=== PATIENT | female | born 1990 | race Caucasian/White ===

== ENCOUNTER 2018-08-10 08:24 | Inpatient (IN) | payer OTHER, MEDICAID ==
[~2018-08-10] VITALS: Ht 167.6 cm; Wt 72.6 kg
[~2018-08-10 08:24] MED LIST: ACETAMINOPHEN-1 EAC1 PO; AUGMENTIN 875875 MG PO; CVS PRENATAL M1 EACH PO; PREDNISONE 20 M20 M1 PO; TOBRAMYCIN SULFA5 ML OPHTHALMIC
[2018-08-10 08:37] VITALS: BP 112/73
[2018-08-10] MEDS ORDERED: FLEXERIL PO (08:41)
[2018-08-10] MEDS ORDERED: NAPROSYN500 MG PO (08:41)
[2018-08-10] MEDS ORDERED: CLEOCIN HCL150 MG PO (08:41)
[2018-08-10 09:14] LABS: HEMATOCRIT 39.7 % (37.0-47.0); MCH 29.4 pg (26.0-34.0); MCHC 32.8 g/dL (28.0-37.0); MCV 89.6 fL (80.0-100.0); MPV 9.3 fl. (7.2-11.1); NUCLEATED RBCS 0 /100WBC; PLATELET COUNT* 234 thou/uL (150-400); RBC 4.43 mil/uL (4.20-5.00); RDW-CV 12.9 % (10.5-14.5); WBC 12.8 thou/uL (4.0-11.0)
[2018-08-10 09:25] LABS: URINE BILIRUBIN NEGATIVE (Negative); URINE BLOOD NEGATIVE (Negative); URINE CLARITY CLEAR; URINE COLOR DARK YELLOW; URINE GLUCOSE-RANDOM NEGATIVE (Negative); URINE KETONES 1+ (Negative); URINE LEUKOCYTES-REFLEX NEGATIVE (Negative); URINE NITRITE-REFLEX NEGATIVE (Negative); URINE PROTEIN 1+ (Negative); URINE SPECIFIC GRAVITY 1.015 (1.005-1.030); URINE UROBILINOGEN 0.2 E.U./dl (0.2-1.0)
[2018-08-10 09:26] LABS: APTT 40.4 Seconds (25.0-31.3); PROTIME 10.4 Seconds (9.20-11.50)
[2018-08-10 09:32] LABS: CALCIUM 8.4 mg/dL (8.5-10.1); CREATININE 0.8 mg/dL (0.6-1.3); POTASSIUM 3.4 mmol/L (3.5-5.1)
[2018-08-10 09:35] LABS: MUCUS >6 Heavy strn/LPF (None Seen); SQUAMOUS >10 Many /LPF (0-3)
[2018-08-10 09:36] LABS: BACTERIA-REFLEX >30 Many /HPF (None Seen); URINE RBC 3-10 Few /HPF (0-2)
[2018-08-10 09:37] LABS: ALBUMIN 3.7 g/dL (3.4-5.0); TOTAL BILIRUBIN 0.8 mg/dL (<0.1-1.0); TOTAL PROTEIN 7.4 g/dL (6.4-8.2)
[2018-08-10 09:37] LABS: CASTS None Seen /LPF (None Seen); CRYSTALS None Seen /LPF (None Seen); URINE WBC-REFLEX 0-5 Rare /HPF (0-5)
[2018-08-10 09:47] LABS: ABSOLUTE EOSINOPHILS 0.1 thou/uL (0.0-0.7); ABSOLUTE LYMPHOCYTES 1.5 thou/uL (0.8-5.3); ABSOLUTE MONOCYTES 1.3 thou/uL (0.0-1.2); ABSOLUTE NEUTROPHILS 9.9 thou/uL (1.6-8.1); ATYPICAL LYMPHS 2 %; PLATELET ESTIMATE ADEQUATE
[2018-08-10 12:25] VITALS: BP 116/71
[2018-08-10 13:03] VITALS: BP 105/64
[2018-08-10 15:59] VITALS: BP 124/73
--- NOTE | 2018-08-10 20:28 | NUR ---
PATIENT ARRIVED ON UNIT FROM ER AT 1600. COMPLETED ADMISSION ASSESSMENT AND HISTORY. IV CLEAN, FLUIDS INFUSING. PAIN CONTROLLED WELL WITH TORDOL. TOLERATED DIET, NO NAUSEA AND VOMITING. CREAM PLACED ON NECK. ALERT AND ORIENTED X'S 4. VITAL SIGNS AND SPO2 STABLE. COMPLETED HOURLY ROUNDING. CALL LIGHT WITHIN REACH. WILL CONTINUE TO MONITOR.
[2018-08-10 20:45] VITALS: BP 105/62
[2018-08-11 04:28] LABS: ABSOLUTE EOSINOPHILS 0.1 thou/uL (0.0-0.7); ABSOLUTE LYMPHOCYTES 1.3 thou/uL (0.8-5.3); ABSOLUTE MONOCYTES 1.1 thou/uL (0.0-1.2); ABSOLUTE NEUTROPHILS 5.7 thou/uL (1.6-8.1); BASOPHILS 0.4 %; EOSINOPHILS 1.7 %; HEMATOCRIT 33.3 % (37.0-47.0); HEMOGLOBIN 11.2 gm/dL (12.0-15.0); LYMPHOCYTES 16.1 %; MCH 30.2 pg (26.0-34.0); MCHC 33.7 g/dL (28.0-37.0); MCV 89.6 fL (80.0-100.0); MONOCYTES 13.1 %; MPV 8.8 fl. (7.2-11.1); NUCLEATED RBCS 0 /100WBC; PLATELET COUNT* 202 thou/uL (150-400); POLYS 68.7 %; RBC 3.71 mil/uL (4.20-5.00); RDW-CV 12.9 % (10.5-14.5); WBC 8.3 thou/uL (4.0-11.0)
[2018-08-11 04:43] LABS: CALCIUM 7.6 mg/dL (8.5-10.1); CREATININE 0.7 mg/dL (0.6-1.3); MAGNESIUM 2.1 mg/dL (1.8-2.4); POTASSIUM 3.3 mmol/L (3.5-5.1)
--- NOTE | 2018-08-11 05:36 | NUR ---
PATIENT REMAINS ALERT AND ORIENTED X4 THROUGHOUT SHIFT. VITAL SIGNS STABLE ON ROOM AIR. TRANSFERS AD OLIVIER TO THE RESTOOM. IV PATENT IN THE RIGHT AC SALINE LOCKED PER ORDERS. TOLERATING DIET. PAIN MANAGED WITH PO MEDICATION. REPOSITIONING SELF IN BED. HOURLY ROUNDING COMPLETE. CALL LIGHT WITHIN REACH. NURSING WILL CONTINUE TO MONITOR.
[2018-08-11 07:45] VITALS: BP 112/70
--- NOTE | 2018-08-11 13:11 | CON ---
[address] [address] CONSULTATION Name: JANESSA GRIFFITH Room: [address] [place] .R.#: [id number] Admission: 08/10/18 Attend Phys: Paul Corcoran MD Discharge: Date of : 88 Report #: [id number] THIS REPORT FOR: //name// CC: Paul Corcoran [facility] physician/PCP DATE OF SERVICE: 08/10/2018 REASON FOR CONSULTATION: I was asked to evaluate concerning left neck soft tissue infection. HISTORY OF PRESENT ILLNESS: The patient was a 27-year-old otherwise healthy white female with a 4-day history of increasing left neck pain and swelling. She has underlying history of eczema that involves her posterior scalp as well as her hands on the palmar surface. She has had this for several years. She also has a history of recurring ear infections, mostly on the left side. She had issues when she was a child with myringotomy tubes placed, but even as an adult, when she gets upper respiratory tract infection, it seems to settle in her left ear. She had some congestion last week, but that has cleared. Now with pain in her left neck, now associated with erythema and low-grade fever. She has associated headache with this. No change in her hearing. No vertigo. Seen in the [facility] initially and felt that she had a viral issue. She returned 2 days ago and was placed on clindamycin. With no improvement, she presents this morning for further evaluation. In the Emergency Room, she was afebrile and hemodynamically stable. There have been no mental status changes. REVIEW OF SYSTEMS: Denies any pharyngitis symptoms. No rhinorrhea. No visual changes. No hearing changes. Denies any cough or sputum production. She has had no pleuritic chest pain. No nausea, vomiting or diarrhea. No dysuria or frequency. No other rashes. No arthritis symptoms. REVIEW OF SYSTEMS: A 10-point review of systems negative other than what is described above. PAST MEDICAL HISTORY: Sinusitis, oophorectomy, tonsillectomy, myringotomy tubes. ALLERGIES: CEFACLOR, although tolerates penicillins. MEDICATIONS: As noted on her JAN, now on vancomycin. Previously was on Flexeril, Naprosyn, and clindamycin. FAMILY HISTORY: Noncontributory. SOCIAL HISTORY: Smoker of cigarettes. No significant alcohol intake. No HIV risk factors. Works in a daycare. Has a 5-year-old child, [place] [address] CONSULTATION Name: JANESSA GRIFFITH Room: [address]#: [id number] Admission: 08/10/18 Attend Phys: Paul Corcoran MD Discharge: Date of : 88 Report #: [id number] parttime. PHYSICAL EXAMINATION: GENERAL: Afebrile and hemodynamically stable. Alert and cooperative. Mental status was normal. She had significant amount of pain when trying to move her head. She guarded her neck on the left side. SKIN: With erythema and induration involving the left neck laterally. She had tender adenopathy, posterior auricular and in the posterior cervical chain. HEENT: Erythema extended from the nape of her neck down to her base of her sternocleidomastoid. Eyes: Unremarkable with no conjunctivitis or scleral icterus. Mouth: Unremarkable with no mucositis. No pharyngitis evident. There is no posterior oropharyngeal injection or drainage. No thyromegaly or mass identified. LUNGS: Clear with no adventitial sounds. HEART: Regular, without murmur, gallop or rub. ABDOMEN: Soft, nontender, no hepatosplenomegaly or mass. EXTREMITIES: Unremarkable with no peripheral edema or cyanosis. She had no other peripheral adenopathy identified. She did have on skin examination in addition to what is described in her head and neck exam, she also had eczema involving both palms. NEUROLOGIC: Normal including normal cranial nerves, lower extremity strength and sensation. LABORATORY STUDIES: Hemoglobin 13, platelet count 234,000, white count 12.8, 76% segs, 1% band. Sodium 138, potassium 3.4, bicarbonate of 26, creatinine 0.8. Liver function test normal. Urinalysis, no wbc's, many bacteria and blood cultures are pending. CT scan of the neck was viewed and agreed with impression reported. She has evidence of cellulitis with some swelling along the left sternocleidomastoid. Small rim of fluid tracking down posteriorly as well. IMPRESSION: A 27-year-old with cellulitis, soft tissue infection of the left neck. I am suspecting the initial source was related to her eczema. No evidence of mastoiditis or dental infection. No evidence of pneumonia. Her group A strep antigen was negative. RECOMMENDATION: We will continue with IV antibiotic therapy. May need a course of corticosteroids, get the inflammation to diminish here. We will screen for MRSA. Apply heat to the left neck. Check ASO titer. Follow up CBC in the a.m. <ELECTRONICALLY SIGNED> By: Amaury Bond MD 08/11/18 1311 [id number] Bond MD /nt
[2018-08-11 16:00] VITALS: BP 118/54
--- NOTE | 2018-08-11 16:48 | NUR ---
PATIENT GIVEN PRN VICODIN FOR LEFT SIDED NECK PAIN THIS SHIFT, ADEQUATE PAIN RELIEF NOTED. UP AD OLIVIER. IV ABX SCHED AND GIVEN ORDERED. PRN HS SLEEP AIDE ORDERED FOR PATIENT PER REQUEST. POTASSIUM REPLACED THIS SHIFT FOR VALUE OF 3.3 PER PROTOCOL, REDRAW THIS EVENING. WARM MOIST PACK FOR LEFT SIDE OF NECK.
[2018-08-11 20:45] VITALS: BP 109/70
[2018-08-12 04:33] LABS: ABSOLUTE LYMPHOCYTES 0.9 thou/uL (0.8-5.3); ABSOLUTE MONOCYTES 0.5 thou/uL (0.0-1.2); ABSOLUTE NEUTROPHILS 9.4 thou/uL (1.6-8.1); BASOPHILS 0.1 %; HEMOGLOBIN 11.3 gm/dL (12.0-15.0); LYMPHOCYTES 8.4 %; MCH 30.1 pg (26.0-34.0); MCHC 33.3 g/dL (28.0-37.0); MCV 90.4 fL (80.0-100.0); MONOCYTES 4.7 %; MPV 9.1 fl. (7.2-11.1); NUCLEATED RBCS 0 /100WBC; PLATELET COUNT* 264 thou/uL (150-400); POLYS 86.8 %; RBC 3.77 mil/uL (4.20-5.00); RDW-CV 13.1 % (10.5-14.5); WBC 10.8 thou/uL (4.0-11.0)
[2018-08-12 04:53] LABS: ALBUMIN 2.7 g/dL (3.4-5.0); CALCIUM 8.4 mg/dL (8.5-10.1); CREATININE 0.6 mg/dL (0.6-1.3); TOTAL BILIRUBIN 0.3 mg/dL (<0.1-1.0); TOTAL PROTEIN 6.4 g/dL (6.4-8.2)
[2018-08-12 08:03] VITALS: BP 121/80
--- NOTE | 2018-08-12 08:34 | NUR ---
PATIENT HAS RESTED WELL THROUGHOUT THE NIGHT. PAIN MEDICATION GIVEN FOR C/O HEADACHE. MEDICATION CHARTED. ASSESSMENT CHARTED. NEW IV IN LEFT FOREARM. IV ABT GIVEN ORDERED. NO ADVERSE SIDE EFFECTS NOTED. HOURLY ROUNDS MADE. WILL CONTINUE WITH PLAN OF CARE AND NURSING TO MONITOR.
--- NOTE | 2018-08-12 09:15 | NUR ---
ASSUMED CARE THIS AM, A/O, NO DISTRESS NOTED, VSS, SEE ASSESSMENT FOR DETAILS. REDNESS CLEARING FROM LEFT SIDE OF NECK, COMPLIANT WITH CARE, CARE PLAN REVIEWED WITH PATIENT, DENIES QUESTIONS AT THIS TIME, CONT POC.
--- NOTE | 2018-08-12 15:59 | NUR ---
PT.UP WALKING AROUND ROOM AND ON THE PHONE. SHE DID NOT ATTEMPT TO GET OFF THE PHONE TO TALK WITH CM. INTRODUCED MYSELF AND YOAV OF PEBBLES. SHE SAID SHE WAS FINE.WORKS OUTSIDE THE HOME. FAMILY WAS SUPPORTIVE. DID NOT NEED ANY HELP. HOPES TO GO HOME TOMORROW.
[2018-08-12 16:34] VITALS: BP 117/79
[2018-08-12 20:15] VITALS: BP 116/68
--- NOTE | 2018-08-13 06:10 | NUR ---
PATIENT REMAINS ALERT AND ORIENTED X4 THROUGHOUT SHIFT. VITAL SIGNS STABLE ON ROOM AIR. IV PATENT IN THE RIGHT FOREARM SALINE LOCKED. PAIN MANAGED WITH PO AND IV MEDICATION. DENIES NAUSEA. TOLERATING DIET. REPOSITIONING SELF IN BED HOURLY ROUNDING COMPLETE. CALL LIGHT WITHIN REACH. NURSING WILL CONTINUE TO MONITOR.
[2018-08-13 08:50] VITALS: BP 117/71
[2018-08-13] MEDS ORDERED: TRIAMCINOLONE A80 G2 TOP (12:07)
[2018-08-13 12:12] VITALS: BP 117/71
[2018-08-13] MEDS ORDERED: NORCO 5-325 TA1 EACH PO (12:12)
[2018-08-13 12:54] VITALS: BP 117/71
[2018-08-13] MEDS ORDERED: AUGMENTIN 875-1 EACH PO (12:54)
--- NOTE | 2018-08-13 13:12 | NUR ---
PT GIVEN DISCHARGE INFORMATION AT THIS TIME. IV REMOVED. PRESCRIPTIONS LEFT WITH PT. PT DENIES ANY FURTHER QUESTIONS AT THIS TIME. PT LEFT WITH NURSING STAFF TO HOME CARE.
[2018-08-13 13:31] VITALS: BP 117/71
--- NOTE | 2018-08-13 13:35 | NUR ---
NURSING DOCUMENTATION BY SULMA Mirza RN REVIEWED
== END 2018-08-13 13:32 | disposition home or self-care (01) | DRG 603 ==
LOC: M.ERS 08:24 → M.ORTHSURG 11:58 → M.TBA-ER 11:58 → M.ORTHSURG 12:34
PROVIDERS: Family Medicine; ADMIT Internal Medicine
DX: L03.221 Cellulitis of neck (principal); R65.10 Systemic inflammatory response syndrome (SIRS) of non-infectious origin without acute organ dysfunction; F17.210 Nicotine dependence, cigarettes, uncomplicated; L30.9 Dermatitis, unspecified; M60.9 Myositis, unspecified; Z90.721 Acquired absence of ovaries, unilateral; Z88.8 Allergy status to other drugs, medicaments and biological substances

== ENCOUNTER 2018-09-10 10:09 | Emergency (ER) | payer OTHER, MEDICAID ==
[~2018-09-10] VITALS: Ht 167.6 cm; Wt 73.5 kg
[~2018-09-10 10:09] MED LIST changes: +AUGMENTIN 875-1 EACH PO; +CLEOCIN HCL150 MG PO; +FLEXERIL PO; +NAPROSYN500 MG PO; +NORCO 5-325 TA1 EACH PO; +TRIAMCINOLONE A80 G2 TOP
[2018-09-10] MEDS ORDERED: PREDNISONE 2.52.5 M1 PO (10:30)
[2018-09-10 10:50] LABS: URINE BILIRUBIN NEGATIVE (Negative); URINE BLOOD NEGATIVE (Negative); URINE CLARITY CLEAR; URINE COLOR YELLOW; URINE GLUCOSE-RANDOM NEGATIVE (Negative); URINE KETONES NEGATIVE (Negative); URINE LEUKOCYTES-REFLEX NEGATIVE (Negative); URINE NITRITE-REFLEX NEGATIVE (Negative); URINE PROTEIN NEGATIVE (Negative); URINE UROBILINOGEN 0.2 E.U./dl (0.2-1.0)
[2018-09-10 11:12] LABS: ABSOLUTE LYMPHOCYTES 0.6 thou/uL (0.8-5.3); ABSOLUTE MONOCYTES 0.8 thou/uL (0.0-1.2); ABSOLUTE NEUTROPHILS 3.6 thou/uL (1.6-8.1); BASOPHILS 0.5 %; EOSINOPHILS 0.1 %; HEMATOCRIT 35.5 % (37.0-47.0); HEMOGLOBIN 11.9 gm/dL (12.0-15.0); LYMPHOCYTES 11.2 %; MCH 29.8 pg (26.0-34.0); MCHC 33.4 g/dL (28.0-37.0); MCV 89.2 fL (80.0-100.0); MONOCYTES 15.1 %; NUCLEATED RBCS 0 /100WBC; PLATELET COUNT* 172 thou/uL (150-400); POLYS 73.1 %; RBC 3.98 mil/uL (4.20-5.00); RDW-CV 13.1 % (10.5-14.5)
[2018-09-10 11:16] LABS: CALCIUM 8.8 mg/dL (8.5-10.1); CREATININE 0.8 mg/dL (0.6-1.3); POTASSIUM 3.6 mmol/L (3.5-5.1)
[2018-09-10 11:20] LABS: ALBUMIN 3.6 g/dL (3.4-5.0); TOTAL BILIRUBIN 0.8 mg/dL (<0.1-1.0); TOTAL PROTEIN 6.8 g/dL (6.4-8.2)
[2018-09-10 12:15] VITALS: BP 120/68
== END 2018-09-10 12:15 | disposition home or self-care (01) ==
LOC: M.ERS 10:09
PROVIDERS: Nurse Practitioner Family
DX: B34.9 Viral infection, unspecified (principal); R59.0 Localized enlarged lymph nodes; F17.210 Nicotine dependence, cigarettes, uncomplicated; Z90.722 Acquired absence of ovaries, bilateral; Z88.8 Allergy status to other drugs, medicaments and biological substances